=== PATIENT | male | born 1990 | race Caucasian/White ===

== ENCOUNTER 2020-12-16 17:27 | Emergency (ER) | payer SELFPAY ==
[~2020-12-16] VITALS: Ht 172.7 cm; Wt 127.0 kg
[2020-12-16] MEDS ORDERED: HYDROCODONE/APAP 10MG-325MG TAB PO ONE (17:45)
[2020-12-16] MEDS ORDERED: HYDROCODON-ACE1 EA12 PO (19:50)
== END 2020-12-16 20:33 | disposition home or self-care (01) ==
LOC: ER 17:38
DX: M97.22XA Periprosthetic fracture around internal prosthetic left ankle joint, initial encounter (principal); M79.672 Pain in left foot; Y93.64 Activity, baseball; Y92.328 Other athletic field as the place of occurrence of the external cause
CPT/HCPCS: 99283

== ENCOUNTER → 2021-02-12 | Emergency (ER) | payer SELFPAY ==
[~2021-02-12] MED LIST: HYDROCODON-ACE1 EA12 PO
== END | disposition left against medical advice (07) ==
LOC: ER 23:45
DX: R69 Illness, unspecified (principal)